=== PATIENT | male | born 1930 | race Caucasian/White ===

== ENCOUNTER 2016-10-04 15:59 | Emergency (ER) | payer OTHER ==
[2016-12-16] MEDS ORDERED: ELIQUIS2.5 MG GT (12:40)
[2016-12-16] MEDS ORDERED: ASPIRIN CHEWABL81 MG GT (12:41)
[2016-12-16] MEDS ORDERED: LIPITOR10 MG PO (12:42)
[2016-12-16] MEDS ORDERED: CARDIZEM CD180 MG PO (12:46)
[2016-12-16] MEDS ORDERED: LASIX20 MG PO (12:46)
[2016-12-16] MEDS ORDERED: PROTONIX40 M1 PO (12:47)
[2016-12-16] MEDS ORDERED: RESTORIL15 MG PO (12:53)
[2016-12-25] MEDS ORDERED: LANOXIN TAB0.125 MG PO (12:27)
[2016-12-25] MEDS ORDERED: DILTIAZEM HCL60 MG GT (12:33)
[2016-12-25] MEDS ORDERED: FERROUS SU300 MG/5 M GT (12:35)
[2016-12-25] MEDS ORDERED: IPRAT-ALBUT 0.5-3 ML NEB (12:36)
[2016-12-25] MEDS ORDERED: ISOSORBIDE MONO60 MG GT (12:37)
[2016-12-25] MEDS ORDERED: LORAZEPAM1 MG GT (12:38)
[2016-12-25] MEDS ORDERED: FOLIC ACID1 MG GT (12:38)
[2016-12-25] MEDS ORDERED: DONEPEZIL HCL10 MG GT (12:39)
[2016-12-25] MEDS ORDERED: AUGMENTIN 500-1 EACH GT (12:40)
[2016-12-25] MEDS ORDERED: PREVACID 30 MG30 MG GT (12:40)
[2016-12-27] MEDS ORDERED: SEROQUEL TAB 2525 MG PO (11:21)
[2017-01-15] MEDS ORDERED: [UNRECOGNIZED DRUG - OTHER] GT (16:23)
[2017-01-15] MEDS ORDERED: XOPENEX1.25 MG/3 INH (16:25)
[2017-01-15] MEDS ORDERED: ATROVENT INH S2.5 ML INH (16:25)
[2017-01-15] MEDS ORDERED: TYLENOL EL325 MG/10 GT (16:28)
[2017-01-15] MEDS ORDERED: VALIUM 5 MG TAB5 MG PO (16:28)
[2017-01-15] MEDS ORDERED: ROXANOL SOLN20 MG/ML GT (16:31)
== END 2016-10-04 20:46 | disposition home or self-care (01) ==
LOC: ER1 15:59
DX: S02.2XXA Fracture of nasal bones, initial encounter for closed fracture (principal); S01.81XA Laceration without foreign body of other part of head, initial encounter; S13.9XXA Sprain of joints and ligaments of unspecified parts of neck, initial encounter; W01.0XXA Fall on same level from slipping, tripping and stumbling without subsequent striking against object, initial encounter; Z87.891 Personal history of nicotine dependence
CPT/HCPCS: 12013; 70450; 70486; 72125; 99283